=== PATIENT | female | born 1970 | race Caucasian/White ===

== ENCOUNTER 2021-05-21 08:56 | Outpatient (CLI) | payer BC | END 2021-05-21 08:57 | disposition home or self-care (01) | LOC: NM 08:56 | PROVIDERS: ATTEND Orthopaedic Surgery | DX: T84.84XD Pain due to internal orthopedic prosthetic devices, implants and grafts, subsequent encounter (principal); T84.032D Mechanical loosening of internal right knee prosthetic joint, subsequent encounter; T84.53XD Infection and inflammatory reaction due to internal right knee prosthesis, subsequent encounter | CPT/HCPCS: 78315; A9503 ==

== ENCOUNTER 2023-01-13 09:24 | Outpatient (CLI) | payer OTHER, BC | END 2023-01-13 09:25 | disposition home or self-care (01) | LOC: CT 09:24 | PROVIDERS: ATTEND Student in an Organized Health Care Education/Training Program | DX: R16.0 Hepatomegaly, not elsewhere classified (principal); K57.30 Diverticulosis of large intestine without perforation or abscess without bleeding; K46.9 Unspecified abdominal hernia without obstruction or gangrene; N28.1 Cyst of kidney, acquired | CPT/HCPCS: 74170 ==

== ENCOUNTER 2023-02-04 08:41 | Day surgery (SDC) | payer BC, OTHER ==
[2023-02-04 09:15] LABS: INR-International Normal Ratio 0.9; Prothrombin Time 12.1 sec (12.0-14.7)
[2023-02-04 09:16] LABS: PTT 26.3 sec (22.9-36.1)
[2023-02-04 11:20] VITALS: BP 133/85; TEMP 98.4
== END 2023-02-04 12:15 | disposition home or self-care (01) ==
LOC: CT 08:41
PROVIDERS: ATTEND Internal Medicine
DX: C79.51 Secondary malignant neoplasm of bone (principal); R97.8 Other abnormal tumor markers; Z79.899 Other long term (current) drug therapy
CPT/HCPCS: 20225; 77012; 85610; 85730

== ENCOUNTER 2023-06-07 10:15 | Outpatient (CLI) | payer BC, OTHER | END 2023-06-07 10:16 | disposition home or self-care (01) | LOC: PET 10:15 | PROVIDERS: ATTEND Internal Medicine | DX: C50.412 Malignant neoplasm of upper-outer quadrant of left female breast (principal); C79.51 Secondary malignant neoplasm of bone | CPT/HCPCS: 78815; A9552 ==

== ENCOUNTER 2023-07-08 08:03 | Outpatient (CLI) | payer BC, OTHER | END 2023-07-08 08:04 | disposition home or self-care (01) | LOC: SCSMRI 08:03 | PROVIDERS: ATTEND Nurse Practitioner Family | DX: C79.51 Secondary malignant neoplasm of bone (principal); M54.40 Lumbago with sciatica, unspecified side; M47.816 Spondylosis without myelopathy or radiculopathy, lumbar region | CPT/HCPCS: 72148 ==

== ENCOUNTER 2023-08-30 11:45 | Outpatient (CLI) | payer BC, OTHER | END 2023-08-30 11:46 | LOC: PET 11:45 | PROVIDERS: ATTEND Internal Medicine | DX: C50.412 Malignant neoplasm of upper-outer quadrant of left female breast (principal); C79.51 Secondary malignant neoplasm of bone; N63.20 Unspecified lump in the left breast, unspecified quadrant; K76.9 Liver disease, unspecified; M89.9 Disorder of bone, unspecified | CPT/HCPCS: 78815; A9552 ==

== ENCOUNTER 2024-02-14 10:01 | Outpatient (CLI) | payer BC, OTHER | END 2024-02-14 10:02 | disposition home or self-care (01) | LOC: BICCT 10:01 | PROVIDERS: ATTEND Internal Medicine | DX: C50.912 Malignant neoplasm of unspecified site of left female breast (principal); C79.51 Secondary malignant neoplasm of bone; C78.7 Secondary malignant neoplasm of liver and intrahepatic bile duct; M89.9 Disorder of bone, unspecified; N64.9 Disorder of breast, unspecified | CPT/HCPCS: 71260; 74177 ==

== ENCOUNTER 2025-03-26 12:58 | Outpatient (CLI) | payer OTHER | END 2025-03-26 12:59 | disposition home or self-care (01) | LOC: SCSMRI 12:58 | PROVIDERS: ATTEND Internal Medicine | DX: C50.412 Malignant neoplasm of upper-outer quadrant of left female breast (principal); C79.51 Secondary malignant neoplasm of bone; R97.8 Other abnormal tumor markers; M47.812 Spondylosis without myelopathy or radiculopathy, cervical region; Z79.899 Other long term (current) drug therapy | CPT/HCPCS: 72156; 72157 ==

== ENCOUNTER 2025-06-03 13:04 | Outpatient (CLI) | payer OTHER | END 2025-06-03 13:05 | disposition home or self-care (01) | LOC: SCSMRI 13:04 | PROVIDERS: ATTEND Internal Medicine | DX: C50.412 Malignant neoplasm of upper-outer quadrant of left female breast (principal); C79.51 Secondary malignant neoplasm of bone; R97.8 Other abnormal tumor markers; H81.393 Other peripheral vertigo, bilateral; Z79.899 Other long term (current) drug therapy | CPT/HCPCS: 70553; 76376 ==